=== PATIENT | male | born 1965 | race Caucasian/White ===

== ENCOUNTER 2018-10-19 00:22 | Observation (INO) | payer BC, OTHER ==
[2018-10-19] MEDS ORDERED: Diphtheria,Pertussis(Acell),Tetanus Vaccine 0.5 ML Syringe IM ONE (00:38)
[2018-10-19] MEDS ORDERED: Bacitracin/Neomycin/Polymyxin B Oint 28.4 GM Tube TOP ONE (00:39)
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
[2018-10-19] MEDS ORDERED: Ondansetron 4 MG/2 ML SDV IVPUSH ONE (00:48)
[2018-10-19] MEDS ORDERED: HYDROmorphone 1 MG/ML Syringe IVPUSH ONE (00:48)
[2018-10-19] MEDS ORDERED: Sodium Chloride 0.9% 1,000 ML IV ONE (00:48)
[2018-10-19] MEDS ORDERED: Acetaminophen/HYDROcodone 325-5 MG Tab PO PRN (01:31)
[2018-10-19] MEDS ORDERED: HYDROmorphone 1 MG/ML Syringe IVPUSH PRN (01:31)
[2018-10-19] MEDS ORDERED: Ondansetron 4 MG/2 ML SDV IVPUSH PRN (01:33)
[2018-10-19] MEDS ORDERED: diphenhydrAMINE 50 MG/ML SDV IVPUSH PRN (01:33)
[2018-10-19] MEDS ORDERED: Sodium Chloride 0.9% 10 ML SDV IV SCH (02:45)
[2018-10-19] MEDS ORDERED: Sodium Chloride 0.9% 1,000 ML IV SCH (10:15)
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
[2018-10-19] MEDS ORDERED: Bacitracin Oint 28.35 GM Tube TOP SCH (14:00)
== END 2018-10-19 13:50 | disposition home or self-care (01) ==
LOC: MW.ED 00:22 → MW.MS 00:47
PROVIDERS: ADMIT Surgery; ATTEND Surgery
DX: T20.24XA Burn of second degree of nose (septum), initial encounter (principal); T23.212A Burn of second degree of left thumb (nail), initial encounter; T26.3 Burns of other specified parts of eye and adnexa; T22.10XA Burn of first degree of shoulder and upper limb, except wrist and hand, unspecified site, initial encounter; T31.0 Burns involving less than 10% of body surface; J45.909 Unspecified asthma, uncomplicated; M19.90 Unspecified osteoarthritis, unspecified site; X16.XXXA Contact with hot heating appliances, radiators and pipes, initial encounter; Z87.891 Personal history of nicotine dependence; Z79.51 Long term (current) use of inhaled steroids; Z79.1 Long term (current) use of non-steroidal anti-inflammatories (NSAID); Z79.899 Other long term (current) drug therapy
CPT/HCPCS: 90471; 90715; 96374; 96375; 99283; 99284-25; G0378; J1170; J2405; J7040

== ENCOUNTER 2020-03-27 01:09 | Inpatient (IN) | payer OTHER ==
[2020-03-27] MEDS ORDERED: Sodium Chloride 0.9% 2,500 ML IV ONE (01:21)
[2020-03-27] MEDS ORDERED: Sodium Chloride 0.9% 10 ML Syringe FLUSH PRN ×2 (01:21→04:09)
[2020-03-27] MEDS ORDERED: Sodium Chloride 0.9% 2.5 ML Syringe FLUSH PRN ×2 (01:21→04:09)
[2020-03-27] MEDS ORDERED: Dexamethasone 10 MG/ML SDV IVPUSH ONE (01:21)
[2020-03-27] MEDS ORDERED: cefTRIAXone 2 GM in Sodium Chloride 0.9% 100 ML IV ONE (01:21)
[2020-03-27] MEDS ORDERED: Azithromycin 500 MG in Sodium Chloride 0.9% 250 ML IV SCH (01:30)
--- NOTE | 2020-03-27 01:36 | EDM.PDOC ---
ED HPI GENERAL MEDICAL PROBLEM - General Chief Complaint: Respiratory Problem Stated Complaint: SHORTNESS OF BREATH, COVID POSITIVE Time Seen by Provider: 03/27/20 01:12 - History of Present Illness INITIAL COMMENTS - FREE TEXT/NARRATIVE: HISTORY AND PHYSICAL: History of present illness: This 54-year-old male with a past medical history of BMI greater than 35, asthma, BPH on Flomax presents to emergency department with known COVID positive status. Tonight he is become severely short of breath is come to the emergency department for evaluation. He reports intermittent fevers, now has gradual worsening shortness of breath over the last 12 to 14 hours. No productive cough. No chest pain. Has had a runny nose and a sore throat. Denies any other associated signs or symptoms. No other modifying, aggravating or allevi ating factors. Review of systems: A 10-point review of systems, other than pertinent positives and negatives as stated per HPI, is otherwise negative. Past medical history: As per history of present illness and as reviewed below otherwise noncontributory. Surgical history: As per history of present illness and as reviewed below otherwise noncontributory. Social history: No reported history of drug or alcohol abuse. Family history: As per history of present illness and as reviewed below otherwise noncontributory. Physical exam: VITAL SIGNS: Reviewed. GENERAL: Appears mildly to moderately ill. Tachypnea. And complains of respiratory distress/air hunger. HEAD: No signs of head trauma. EYES: Pupils are equal. Extraocular motions intact. EARS: Hearing grossly intact. MOUTH: Oropharynx is normal. NECK: No adenopathy, no JVD. CHEST: Chest with clear breath sounds bilaterally. No wheezes, rales, or rhonchi. There is tachypnea without accessory muscle use CARDIAC: Regular rate and rhythm. Normal S1 and S2, without murmurs, gallops, or rubs. VASCULAR: Peripheral pulses normal and equal in all extremities. ABDOMEN: Soft, without detectable tenderness. No sign of distention. No rebound or guarding, and no masses palpated. MUSCULOSKELETAL: Good range of motion of all major joints. Extremities without clubbing, cyanosis or edema. NEUROLOGIC EXAM: Alert and oriented x 3. No focal sensory or motor deficits. Speech normal. Follows commands. PSYCHIATRIC: Mood normal. SKIN: No rash or lesions. This is present Initial Differential Diagnosis & Plan: Shortness of breath: Differential diagnosis includes asthma, COPD, pneumonia, congestive heart failure, anemia, thyroid disease, acidosis, pulmonary embolism, myocardial infarction, sepsis. Most likely COVID-19 pneumonia. We will obtain an ABG, chest x-ray, EKG, labs, and start initial COVID medication management. The patient will require admission secondary to his oxygen requirement. Definitive disposition and diagnosis as appropriate pending reevaluation and review of above. - Related Data Allergies Allergy/AdvReac Type Severity Reaction Status Date / Time No Known Allergies Allergy Verified 03/27/20 05:31 Home Meds: Home Meds Albuterol Sulfate [Proair Hfa] 8.5 gm IH ASDIRECTED 10/19/18 [History] Budesonide/Formoterol Fumarate [Symbicort 80-4.5 MCG] 1 puff IH BID 10/19/18 [History] Celecoxib [CeleBREX] 50 mg PO DAILY 10/19/18 [History] Tamsulosin HCl [Flomax] 0.4 mg PO DAILY 03/27/20 [History] Past Medical History HEENT History: Reports: None Cardiovascular History: Reports: None Respiratory History: Reports: Asthma Gastrointestinal History: Reports: None Genitourinary History: Reports: None Musculoskeletal History: Reports: Arthritis Neurological History: Reports: None Psychiatric History: Reports: None Endocrine/Metabolic History: Reports: None Hematologic History: Reports: None Immunologic History: Reports: None Oncologic (Cancer) History: Reports: None Dermatologic History: Reports: Eczema - Infectious Disease History Infectious Disease History: Reports: Chicken Pox, Measles - Past Surgical History Head Surgeries/Procedures: Reports: None Social & Family History - Caffeine Use Caffeine Use: Reports: Coffee, Soda ED ROS GENERAL - Review of Systems Review Of Systems: See Below (noted) ED EXAM, GENERAL - Physical Exam Exam: See Below (noted) ED RESPIRATORY PROCEDURES - Additional/Other Procedure(s) Other (Free Text) Procedure(s): Critical Care Note: The patient presented in critical status due to sepsis secondary to SARS-CoV-2 The patient required rapid exam, decision making, and frequent re-evaluations during their time in the Emergency Department. Total Critical Care time exclusive of all other billable procedure time provided by myself 45 minutes EKG INTERPRETATION EKG Interpretation Comments: 12 lead EKG interpretation Obtained: March 27, 2020 at 01 52 AM Rhythm: Sinus Rate: 81 [place]: Normal Intervals: Normal ST/T Segments: No acute ischemic changes Interpretation: Sinus Rhythm Course - Vital Signs Last Recorded V/S: Last Vital Signs Temp 96.8 F L 03/28/20 00:36 Pulse 54 L 03/28/20 00:36 Resp 16 03/28/20 00:36 BP 114/58 L 03/28/20 00:36 Pulse Ox 92 L 03/28/20 00:36 Patient has bilateral pneumonia and positive COVID-19 test consistent with bilateral COVID pneumonia, early signs of sepsis, given IV antibiotics, IV fluids calculated based on ideal body weight given that his height is 5 foot 4 i nches his ideal body weight should be 70 kg. He received 2500 mL's of IV fluids. He received 2 g of ceftriaxone intravenously. EKG is reassuring. Chest CT is pending to rule out other underlying causes of disease. The patient does have some high risk features including slightly elevated liver enzymes however not 3 times a hand of normal, leukopenia, lymphopenia, thrombocytopenia. Troponin is negative. There is no evidence of kidney dysfunction or renal failure. Oxygen saturation returned to normal ranges with 2 L by nasal cannula. Does not need ventilatory support at this time. ABG was attempted but was unsuccessful. Given his oxygen requirement and positive CODE STATUS I gave the patient informed consent for Remdesivir intravenous treatment. He gave positive consent and has signed the form. This will be started on the medical surgical floor. My diagnostic impression: 1. Bilateral COVID pneumonia 2. Acute respiratory failure with hypoxemia secondary to COVID pneumonia 3. Leukopenia with lymphopenia 4. Thrombocytopenia 5. Mild transaminitis not 3 times a high end of normal 6. Elevated d-dimer not 6 times a high end of normal. Empiric anticoagulation not indicated at this point Admit for intravenous dexamethasone therapy, anti-viral therapy, antibiotics as indicated, and support during progression of disease. - Orders/Labs/Meds Orders: Active Orders 24 hr Category Date Time Status Blood Pressure Mgt: Sepsis [RC] Q15MX2 Care 03/27/20 01:22 Active ABG [BLOOD GAS ARTERIAL] [BG] Stat Lab 03/27/20 01:20 Ordered CULTURE BLOOD [BC] Stat Lab 03/27/20 02:14 Received CULTURE BLOOD [BC] Stat Lab 03/27/20 02:17 Received Sodium Chloride 0.9% [Saline Flush] Med 03/27/20 01:21 Active 10 ml FLUSH ASDIRECTED PRN Sodium Chloride 0.9% [Saline Flush] Med 03/27/20 01:21 Active 2.5 ml FLUSH ASDIRECTED PRN Blood Culture x2 Reflex Set [OM.PC] Stat Oth 03/27/20 01:21 Ordered Saline Lock Insert [OM.PC] Stat Oth 03/27/20 01:21 Ordered Medication Orders Albuterol/Ipratropium (Combivent Respimat) 0 gm INH Q4H PRN PRN Reason: Dyspnea Last Admin: 03/27/20 20:50 Dose: 1 puff Documented by: Admin: 03/27/20 17:24 Dose: 1 puff Documented by: Admin: 03/27/20 06:10 Dose: 1 puff Documented by: DONAL Azithromycin (Zithromax) 500 mg PO Q24H ONE Stop: 03/28/20 03:01 Dexamethasone (Dexamethasone) 6 mg PO DAILY [facility] Last Admin: 03/27/20 13:39 Dose: 6 mg Documented by: STORMY Enoxaparin Sodium (Lovenox) 40 mg SUBCUT Q24H YASH Last Admin: 03/27/20 05:04 Dose: 40 mg Documented by: MOOSE Ceftriaxone Sodium/Dextrose 1 (gm/ Premix) 50 mls @ 100 mls/hr IV Q24H YASH Remdesivir 100 mg/ Sodium (Chloride) 100 mls @ 100 mls/hr IV Q24H YASH Ibuprofen (Motrin) 200 mg PO Q6H PRN PRN Reason: Headache Last Admin: 03/27/20 19:47 Dose: 200 mg Documented by: MOOSE Pantoprazole Sodium (Protonix) 40 mg PO DAILY [facility] Last Admin: 03/27/20 13:39 Dose: 40 mg Documented by: STORMY Sodium Chloride (Saline Flush) 10 ml FLUSH ASDIRECTED PRN PRN Reason: Keep Vein Open Sodium Chloride (Saline Flush) 2.5 ml FLUSH ASDIRECTED PRN PRN Reason: Keep Vein Open Last Admin: 03/27/20 19:49 Dose: 2.5 ml Documented by: MOOSE Sodium Chloride (Saline Flush) 10 ml FLUSH ASDIRECTED PRN PRN Reason: Keep Vein Open Sodium Chloride (Saline Flush) 2.5 ml FLUSH ASDIRECTED PRN PRN Reason: Keep Vein Open Last Admin: 03/27/20 19:48 Dose: 2.5 ml Documented by: MOOSE Labs: Laboratory Tests 03/27/20 03/27/20 03/27/20 Range/Units 01:30 01:30 01:30 WBC 3.75 L (4.0-11.0) K/uL RBC 4.73 (4.50-5.90) M/uL Hgb 14.9 (13.0-17.0) g/dL Hct 42.2 (38.0-50.0) % MCV 89.2 (80.0-98.0) fL MCH 31.5 (27.0-32.0) pg MCHC 35.3 (31.0-37.0) g/dL RDW Std Deviation 39.5 (28.0-62.0) fl RDW Coeff of Libra 12 (11.0-15.0) % Plt Count 143 L (150-400) K/uL MPV 11.20 (7.40-12.00) fL Neut % (Auto) 68.0 (48.0-80.0) % Lymph % (Auto) 19.7 (16.0-40.0) % [place] % (Auto) 9.6 (0.0-15.0) % Eos % (Auto) 2.7 (0.0-7.0) % Baso % (Auto) 0.0 (0.0-1.5) % Neut # (Auto) 2.6 (1.4-5.7) K/uL Lymph # (Auto) 0.7 (0.6-2.4) K/uL [place] # (Auto) 0.4 (0.0-0.8) K/uL Eos # (Auto) 0.1 (0.0-0.7) K/uL Baso # (Auto) 0.0 (0.0-0.1) K/uL INR APTT (18.6-31.3) SEC D-Dimer, Quantitative 1.24 H (0.0-0.50) mg/L FEU Lactate (0.20-2.00) mmol/L Sodium 139 (136-148) mmol/L Potassium 3.5 (3.5-5.1) mmol/L Chloride 102 (98-107) mmol/L Carbon Dioxide 28.0 (21.0-32.0) mmol/L BUN 12 (7.0-18.0) mg/dL Creatinine 1.1 (0.8-1.3) mg/dL Est Cr Clr Drug Dosing 65.03 mL/min Estimated GFR (MDRD) > 60.0 ml/min Glucose 110 H (74-106) mg/dL Calcium 8.2 L (8.5-10.1) mg/dL Magnesium 2.2 (1.8-2.4) mg/dL Total Bilirubin 0.4 (0.2-1.0) mg/dL AST 78 H (15-37) IU/L ALT 81 H (14-63) IU/L Alkaline Phosphatase 59 (46-116) U/L Troponin I < 0.050 (0.000-0.056) ng/mL C-Reactive Protein 5.20 H (0.00-0.90) mg/dL Total Protein 6.6 (6.4-8.2) g/dL Albumin 3.4 (3.4-5.0) g/dL Globulin 3.2 (2.6-4.0) g/dL Albumin/Globulin Ratio 1.1 (0.9-1.6) 03/27/20 03/27/20 Range/Units 01:30 01:30 WBC (4.0-11.0) K/uL RBC (4.50-5.90) M/uL Hgb (13.0-17.0) g/dL Hct (38.0-50.0) % MCV (80.0-98.0) fL MCH (27.0-32.0) pg MCHC (31.0-37.0) g/dL RDW Std Deviation (28.0-62.0) fl RDW Coeff of Libra (11.0-15.0) % Plt Count (150-400) K/uL MPV (7.40-12.00) fL Neut % (Auto) (48.0-80.0) % Lymph % (Auto) (16.0-40.0) % [place] % (Auto) (0.0-15.0) % Eos % (Auto) (0.0-7.0) % Baso % (Auto) (0.0-1.5) % Neut # (Auto) (1.4-5.7) K/uL Lymph # (Auto) (0.6-2.4) K/uL [place] # (Auto) (0.0-0.8) K/uL Eos # (Auto) (0.0-0.7) K/uL Baso # (Auto) (0.0-0.1) K/uL INR 1.01 APTT 25.6 (18.6-31.3) SEC D-Dimer, Quantitative (0.0-0.50) mg/L FEU Lactate 1.0 (0.20-2.00) mmol/L Sodium (136-148) mmol/L Potassium (3.5-5.1) mmol/L Chloride (98-107) mmol/L Carbon Dioxide (21.0-32.0) mmol/L BUN (7.0-18.0) mg/dL Creatinine (0.8-1.3) mg/dL Est Cr Clr Drug Dosing mL/min Estimated GFR (MDRD) ml/min Glucose (74-106) mg/dL Calcium (8.5-10.1) mg/dL Magnesium (1.8-2.4) mg/dL Total Bilirubin (0.2-1.0) mg/dL AST (15-37) IU/L ALT (14-63) IU/L Alkaline Phosphatase (46-116) U/L Troponin I (0.000-0.056) ng/mL C-Reactive Protein (0.00-0.90) mg/dL Total Protein (6.4-8.2) g/dL Albumin (3.4-5.0) g/dL Globulin (2.6-4.0) g/dL Albumin/Globulin Ratio (0.9-1.6) Meds: Medications Generic Name Dose Route Start Last Admin Trade Name Freq PRN Reason Stop Dose Admin Albuterol/Ipratropium 0 gm 03/27/20 04:07 03/27/20 20:50 Combivent Respimat INH 1 puff Q4H PRN Administration Dyspnea Azithromycin 500 mg 03/28/20 03:00 Zithromax PO 03/28/20 03:01 Q24H ONE Dexamethasone 6 mg 03/27/20 12:30 03/27/20 13:39 Dexamethasone PO 6 mg DAILY YASH Administration Enoxaparin Sodium 40 mg 03/27/20 04:00 03/27/20 05:04 Lovenox SUBCUT 40 mg Q24H YASH Administration Ceftriaxone Sodium/Dextrose 1 50 mls @ 100 mls/hr 03/28/20 03:00 gm/ Premix IV Q24H YASH Remdesivir 100 mg/ Sodium 100 mls @ 100 mls/hr 03/28/20 03:00 Chloride IV Q24H YASH Ibuprofen 200 mg 03/27/20 19:25 03/27/20 19:47 Motrin PO 200 mg Q6H PRN Administration Headache Pantoprazole Sodium 40 mg 03/27/20 11:45 03/27/20 13:39 Protonix PO 40 mg DAILY YASH Administration Sodium Chloride 10 ml 03/27/20 01:21 Saline Flush FLUSH ASDIRECTED PRN Keep Vein Open Sodium Chloride 2.5 ml 03/27/20 01:21 03/27/20 19:49 Saline Flush FLUSH 2.5 ml ASDIRECTED PRN Administration Keep Vein Open Sodium Chloride 10 ml 03/27/20 04:09 Saline Flush FLUSH ASDIRECTED PRN Keep Vein Open Sodium Chloride 2.5 ml 03/27/20 04:09 03/27/20 19:48 Saline Flush FLUSH 2.5 ml ASDIRECTED PRN Administration Keep Vein Open Discontinued Medications Generic Name Dose Route Start Last Admin Trade Name Freq PRN Reason Stop Dose Admin Dexamethasone 10 mg 03/27/20 01:21 03/27/20 02:02 Dexamethasone IVPUSH 03/27/20 01:22 10 mg ONETIME ONE Administration Sodium Chloride 2,500 mls @ 2,500 mls/hr 03/27/20 01:21 03/27/20 02:03 Normal Saline IV 03/27/20 02:20 2,500 mls/hr BOLUS ONE Administration Protocol Remdesivir 200 mg/ Sodium 250 mls @ 250 mls/hr 03/27/20 01:21 03/27/20 03:44 Chloride IV 03/27/20 01:22 250 mls/hr ONETIME ONE Administration Ceftriaxone Sodium 2 gm/ 100 mls @ 200 mls/hr 03/27/20 01:21 03/27/20 03:47 Sodium Chloride IV 03/27/20 01:50 Not Given STAT ONE Azithromycin 500 mg/ Sodium 250 mls @ 250 mls/hr 03/27/20 01:30 03/27/20 04:01 Chloride IV 250 mls/hr ONETIME YASH Administration Ceftriaxone Sodium/Dextrose 2 50 mls @ 100 mls/hr 03/27/20 01:38 03/27/20 02:04 gm/ Premix IV 03/27/20 02:07 100 mls/hr ONETIME ONE Administration Ceftriaxone Sodium/Dextrose Confirm 03/27/20 01:40 03/27/20 03:40 Rocephin In Dextrose,Iso-Osm 2 Gm/50 Ml Administered 03/27/20 01:41 Not Given Dose 50 mls @ as directed .ROUTE .STK-MED ONE Ceftriaxone Sodium/Dextrose Confirm 03/27/20 02:10 03/27/20 03:46 Rocephin In Dextrose,Iso-Osm 2 Gm/50 Ml Administered 03/27/20 02:11 Not Given Dose 50 mls @ as directed .ROUTE .STK-MED ONE Iopamidol 75 ml 03/27/20 03:28 03/27/20 03:29 Isovue-370 (76%) IVPUSH 03/27/20 03:29 75 ml ONETIME STA Administration Departure - Departure Time of Disposition: 01:18 Disposition: Admitted As Inpatient 67 Clinical Impression: COVID-19 - Discharge Information Sepsis Event Note (ED) - Evaluation Sepsis Screening Result: No Definite Risk - My Orders Last 24 Hours: My Active Orders 03/27/20 01:20 ABG [BLOOD GAS ARTERIAL] [BG] Stat 03/27/20 01:21 Sodium Chloride 0.9% [Saline Flush] 10 ml FLUSH ASDIRECTED PRN Sodium Chloride 0.9% [Saline Flush] 2.5 ml FLUSH ASDIRECTED PRN Blood Culture x2 Reflex Set [OM.PC] Stat Saline Lock Insert [OM.PC] Stat 03/27/20 01:22 Blood Pressure Mgt: Sepsis [RC] Q15MX2 03/27/20 02:14 CULTURE BLOOD [BC] Stat 03/27/20 02:17 CULTURE BLOOD [BC] Stat - Assessment/Plan Last 24 Hours: My Active Orders 03/27/20 01:20 ABG [BLOOD GAS ARTERIAL] [BG] Stat 03/27/20 01:21 Sodium Chloride 0.9% [Saline Flush] 10 ml FLUSH ASDIRECTED PRN Sodium Chloride 0.9% [Saline Flush] 2.5 ml FLUSH ASDIRECTED PRN Blood Culture x2 Reflex Set [OM.PC] Stat Saline Lock Insert [OM.PC] Stat 03/27/20 01:22 Blood Pressure Mgt: Sepsis [RC] Q15MX2 03/27/20 02:14 CULTURE BLOOD [BC] Stat 03/27/20 02:17 CULTURE BLOOD [BC] Stat
[2020-03-27] MEDS ORDERED: cefTRIAXone 2 GM in Premix Bag 1 BAG IV ONE (01:38)
--- NOTE | 2020-03-27 02:21 | CR ---
Indication: COVID, atypical chest pain Technique: Chest 1 view Comparison: None Findings/Impression: Cardiovascular and mediastinum: Heart size and vasculature are normal in caliber and appearance. Lungs and pleural space: Low lung volumes without pleural effusion or pneumothorax. Trace hazy opacities consistent with a viral pneumonia. Bones and soft tissues: No acute findings. Dictated by Donavon Beckham MD @ Mar 27 2020 2:18AM Signed by Dr. Donavon Beckham @ Mar 27 2020 2:19AM
[2020-03-27 02:27] LABS: BLOOD UREA NITROGEN,BUN 12 mg/dL (7.0-18.0); CHLORIDE,CL 102 mmol/L (98-107); GLUCOSE RANDOM 110 mg/dL (74-106); POTASSIUM,K 3.5 mmol/L (3.5-5.1); SODIUM,NA 139 mmol/L (136-148)
[2020-03-27] MEDS ORDERED: Iopamidol 755 Mg/ML 75 ML Bottle IVPUSH STA (03:25)
[2020-03-27] MEDS ORDERED: Iopamidol 755 Mg/ML 100 ML Bottle IVPUSH STA (03:28)
--- NOTE | 2020-03-27 03:48 | CT ---
INDICATION: COVID pneumonia TECHNIQUE: CT chest PE was acquired with 75 cc Isovue 370 intravenous contrast. COMPARISON: None. FINDINGS: Heart and vasculature: Contrast opacification of the pulmonary arterial tree is adequate. No sign of pulmonary embolism. Heart size is normal. Thoracic aorta and pulmonary artery are normal in caliber.Mild coronary atherosclerosis. Lungs and pleural: No pleural effusion pneumothorax. Patchy bilateral ground-glass opacities throughout both lungs, greater at the periphery. Lymph nodes/mediastinum: No mediastinal, hilar, or axillary adenopathy. Chest wall: No masses. Upper abdomen: Diffusely decreased density of the liver consistent with fatty infiltration. Bones: Unremarkable for age. IMPRESSION: 1. No evidence of pulmonary embolus. 2. Diffuse bilateral ground-glass opacities consistent with the known COVID-19 pneumonia. 3. Fatty infiltration of the liver. Please note that all CT scans at this facility use dose modulation, iterative reconstruction, and/or weight-based dosing when appropriate to reduce radiation dose to as low as reasonably achievable. Dictated by Donavon Beckham MD @ Mar 27 2020 3:44AM Signed by Dr. Donavon Beckham @ Mar 27 2020 3:48AM
[2020-03-27] MEDS: Enoxaparin 40 MG/0.4 ML Syringe SUBCUT SCH (05:04)
[2020-03-27] MEDS: Albuterol/Ipratropium 4 GM Inhalation Spray INH PRN ×3 (06:10→20:50)
--- NOTE | 2020-03-27 08:56 | PCM.HP.2 ---
H&P History of Present Illness - General Date of Service: 03/27/20 Admit Problem/Dx: Admission Diagnosis/Problem Admission Diagnosis/Problem Pneumonia - History of Present Illness Initial Comments - Free Text/Narative: 54 yo male who developed shortness of breath, cough and fevers eight days ago. He did test positive eight days ago along with his daughter who lives with him. He presented to the ED due to worsening symptoms. He was requiring supplemental oxygen 2 liters NC to keep sats above 90%. CXR and CT scan of chest suggestive of COVID pneumonia. - Related Data Allergies/Adverse Reactions: Allergies Allergy/AdvReac Type Severity Reaction Status Date / Time No Known Allergies Allergy Verified 03/27/20 05:31 Home Medications: Home Meds Albuterol Sulfate [Proair Hfa] 8.5 gm IH ASDIRECTED 10/19/18 [History] Budesonide/Formoterol Fumarate [Symbicort 80-4.5 MCG] 1 puff IH BID 10/19/18 [History] Celecoxib [CeleBREX] 50 mg PO DAILY 10/19/18 [History] Tamsulosin HCl [Flomax] 0.4 mg PO DAILY 03/27/20 [History] Past Medical History HEENT History: Reports: None Cardiovascular History: Reports: None Respiratory History: Reports: Asthma Gastrointestinal History: Reports: None Genitourinary History: Reports: BPH Musculoskeletal History: Reports: Arthritis Neurological History: Reports: None Psychiatric History: Reports: None Endocrine/Metabolic History: Reports: None Insulin Pump Model and Turkey Picker: None Hematologic History: Reports: None Immunologic History: Reports: None Oncologic (Cancer) History: Reports: None Dermatologic History: Reports: Eczema - Infectious Disease History Infectious Disease History: Reports: Chicken Pox, Measles - Past Surgical History Head Surgeries/Procedures: Reports: None Social & Family History - Family History Family Medical History: Noncontributory - Tobacco Use Smoking Status *Q: Never Smoker - Caffeine Use Caffeine Use: Reports: Coffee, Soda - Recreational Drug Use Recreational Drug Use: No H&P Review of Systems - Review of Systems: Review Of Systems: Comprehensive ROS is negative, except as noted in HPI. Exam - Exam Exam: See Below - Vital Signs Vital Signs: Last Vital Signs Temp 36.2 C 03/27/20 03:39 Pulse 86 03/27/20 03:39 Resp 18 03/27/20 03:39 BP 150/82 H 03/27/20 03:39 Pulse Ox 96 03/27/20 03:39 Weight: 99.79 kg - Exam General: Alert, Oriented HEENT: Mucosa Moist & [place] Lungs: Clear to Auscultation, Normal Respiratory Effort Cardiovascular: Regular Rate, Regular Rhythm GI/Abdominal Exam: Normal Bowel Sounds, Soft, Non-Tender Extremities: Non-Tender, No Pedal Edema Skin: Warm, Dry, Intact - Patient Data Lab Results Last 24 hrs: Laboratory Results - last 24 hr 03/27/20 03/27/20 03/27/20 Range/Units 01:30 01:30 01:30 WBC 3.75 L (4.0-11.0) K/uL RBC 4.73 (4.50-5.90) M/uL Hgb 14.9 (13.0-17.0) g/dL Hct 42.2 (38.0-50.0) % MCV 89.2 (80.0-98.0) fL MCH 31.5 (27.0-32.0) pg MCHC 35.3 (31.0-37.0) g/dL RDW Std Deviation 39.5 (28.0-62.0) fl RDW Coeff of Libra 12 (11.0-15.0) % Plt Count 143 L (150-400) K/uL MPV 11.20 (7.40-12.00) fL Neut % (Auto) 68.0 (48.0-80.0) % Lymph % (Auto) 19.7 (16.0-40.0) % [place] % (Auto) 9.6 (0.0-15.0) % Eos % (Auto) 2.7 (0.0-7.0) % Baso % (Auto) 0.0 (0.0-1.5) % Neut # (Auto) 2.6 (1.4-5.7) K/uL Lymph # (Auto) 0.7 (0.6-2.4) K/uL [place] # (Auto) 0.4 (0.0-0.8) K/uL Eos # (Auto) 0.1 (0.0-0.7) K/uL Baso # (Auto) 0.0 (0.0-0.1) K/uL INR APTT (18.6-31.3) SEC D-Dimer, Quantitative 1.24 H (0.0-0.50) mg/L FEU Lactate (0.20-2.00) mmol/L Sodium 139 (136-148) mmol/L Potassium 3.5 (3.5-5.1) mmol/L Chloride 102 (98-107) mmol/L Carbon Dioxide 28.0 (21.0-32.0) mmol/L BUN 12 (7.0-18.0) mg/dL Creatinine 1.1 (0.8-1.3) mg/dL Est Cr Clr Drug Dosing 65.03 mL/min Estimated GFR (MDRD) > 60.0 ml/min Glucose 110 H (74-106) mg/dL Calcium 8.2 L (8.5-10.1) mg/dL Magnesium 2.2 (1.8-2.4) mg/dL Total Bilirubin 0.4 (0.2-1.0) mg/dL AST 78 H (15-37) IU/L ALT 81 H (14-63) IU/L Alkaline Phosphatase 59 (46-116) U/L Troponin I < 0.050 (0.000-0.056) ng/mL C-Reactive Protein 5.20 H (0.00-0.90) mg/dL Total Protein 6.6 (6.4-8.2) g/dL Albumin 3.4 (3.4-5.0) g/dL Globulin 3.2 (2.6-4.0) g/dL Albumin/Globulin Ratio 1.1 (0.9-1.6) SARS CoV-2 RNA Rapid YIMI (NEGATIVE) 03/27/20 03/27/20 03/27/20 Range/Units 01:30 01:30 02:25 WBC (4.0-11.0) K/uL RBC (4.50-5.90) M/uL Hgb (13.0-17.0) g/dL Hct (38.0-50.0) % MCV (80.0-98.0) fL MCH (27.0-32.0) pg MCHC (31.0-37.0) g/dL RDW Std Deviation (28.0-62.0) fl RDW Coeff of Libra (11.0-15.0) % Plt Count (150-400) K/uL MPV (7.40-12.00) fL Neut % (Auto) (48.0-80.0) % Lymph % (Auto) (16.0-40.0) % [place] % (Auto) (0.0-15.0) % Eos % (Auto) (0.0-7.0) % Baso % (Auto) (0.0-1.5) % Neut # (Auto) (1.4-5.7) K/uL Lymph # (Auto) (0.6-2.4) K/uL [place] # (Auto) (0.0-0.8) K/uL Eos # (Auto) (0.0-0.7) K/uL Baso # (Auto) (0.0-0.1) K/uL INR 1.01 APTT 25.6 (18.6-31.3) SEC D-Dimer, Quantitative (0.0-0.50) mg/L FEU Lactate 1.0 (0.20-2.00) mmol/L Sodium (136-148) mmol/L Potassium (3.5-5.1) mmol/L Chloride (98-107) mmol/L Carbon Dioxide (21.0-32.0) mmol/L BUN (7.0-18.0) mg/dL Creatinine (0.8-1.3) mg/dL Est Cr Clr Drug Dosing mL/min Estimated GFR (MDRD) ml/min Glucose (74-106) mg/dL Calcium (8.5-10.1) mg/dL Magnesium (1.8-2.4) mg/dL Total Bilirubin (0.2-1.0) mg/dL AST (15-37) IU/L ALT (14-63) IU/L Alkaline Phosphatase (46-116) U/L Troponin I (0.000-0.056) ng/mL C-Reactive Protein (0.00-0.90) mg/dL Total Protein (6.4-8.2) g/dL Albumin (3.4-5.0) g/dL Globulin (2.6-4.0) g/dL Albumin/Globulin Ratio (0.9-1.6) SARS CoV-2 RNA Rapid YIMI POSITIVE H (NEGATIVE) Result Diagrams: 03/28/20 06:32 03/28/20 06:32 Sepsis Event Note - Evaluation Sepsis Screening Result: No Definite Risk - Focused Exam Vital Signs: Vital Signs Temp Pulse Resp BP Pulse Ox 03/27/20 03:39 36.2 C 86 18 150/82 H 96 03/27/20 03:09 82 18 97 03/27/20 02:30 74 18 138/78 95 03/27/20 02:08 140/86 03/27/20 01:53 146/91 H 03/27/20 01:15 36.9 C 92 20 125/81 90 L Problem List Initiated/Reviewed/Updated: Yes Orders Last 24hrs: Active Orders 24 hr Category Date Time Status Patient Status [ADT] Routine ADT 03/27/20 02:16 Active Antiembolic Devices [RC] PER UNIT ROUTINE Care 03/27/20 05:40 Active Blood Pressure Mgt: Sepsis [RC] [id number] Care 03/27/20 01:22 Active RT Post Treatment Assessment [RC] Click to Edit Care 03/27/20 04:07 Active RT Pre-Treatment Assessment [RC] Click to Edit Care 03/27/20 04:07 Active Telemetry Monitoring [Cardiac Monitoring] [RC] . Care 03/27/20 03:53 Active DIRECTED Vital Signs [RC] Q4H Care 03/27/20 04:08 Active Regular Diet [DIET] Diet 03/27/20 Breakfast Active ABG [BLOOD GAS ARTERIAL] [BG] Stat Lab 03/27/20 01:20 Ordered CORONAVIRUS COVID-19 PCR PHL Stat Lab 03/27/20 02:25 Received CULTURE BLOOD [BC] Stat Lab 03/27/20 02:14 Received CULTURE BLOOD [BC] Stat Lab 03/27/20 02:17 Received Albuterol/Ipratropium [Combivent Respimat] Med 03/27/20 04:07 Active 0 gm INH Q4H PRN Azithromycin [Zithromax] 500 mg Med 03/27/20 01:30 Active Sodium Chloride 0.9% [Normal Saline (AdvBag)] 250 ml IV ONETIME Enoxaparin [Lovenox] Med 03/27/20 04:00 Active 40 mg SUBCUT Q24H Sodium Chloride 0.9% [Saline Flush] Med 03/27/20 01:21 Active 10 ml FLUSH ASDIRECTED PRN Sodium Chloride 0.9% [Saline Flush] Med 03/27/20 04:09 Active 10 ml FLUSH ASDIRECTED PRN Sodium Chloride 0.9% [Saline Flush] Med 03/27/20 01:21 Active 2.5 ml FLUSH ASDIRECTED PRN Sodium Chloride 0.9% [Saline Flush] Med 03/27/20 04:09 Active 2.5 ml FLUSH ASDIRECTED PRN Blood Culture x2 Reflex Set [OM.PC] Stat Ot 03/27/20 01:21 Ordered SCD [Sequential Compression Device] [OM.PC] Routine Ot 03/27/20 05:40 Ordered Saline Lock Insert [OM.PC] Routine Ot 03/27/20 04:09 Ordered Saline Lock Insert [OM.PC] Stat Ot 03/27/20 01:21 Ordered Medication Orders Albuterol/Ipratropium (Combivent Respimat) 0 gm INH Q4H PRN PRN Reason: Dyspnea Last Admin: 03/27/20 06:10 Dose: 1 puff Documented by: DONAL Enoxaparin Sodium (Lovenox) 40 mg SUBCUT Q24H YASH Last Admin: 03/27/20 05:04 Dose: 40 mg Documented by: MOOSE Azithromycin 500 mg/ Sodium (Chloride) 250 mls @ 250 mls/hr IV ONETIME [facility] Last Admin: 03/27/20 04:01 Dose: 250 mls/hr Documented by: MOOSE Sodium Chloride (Saline Flush) 10 ml FLUSH ASDIRECTED PRN PRN Reason: Keep Vein Open Sodium Chloride (Saline Flush) 2.5 ml FLUSH ASDIRECTED PRN PRN Reason: Keep Vein Open Sodium Chloride (Saline Flush) 10 ml FLUSH ASDIRECTED PRN PRN Reason: Keep Vein Open Sodium Chloride (Saline Flush) 2.5 ml FLUSH ASDIRECTED PRN PRN Reason: Keep Vein Open Assessment/Plan Comment:: 54 yo male admitted for COVID pneumonia. We will treat with Remdesivir, dexamethasone and lovenox. Patient explained emergency use authorization and potential side effects of medications. Patient is also receiving Rocephin and azithromycin for possible bacterial pneumonia.
[2020-03-27] MEDS: Dexamethasone 4 MG Tab PO SCH (13:39)
[2020-03-27] MEDS: Pantoprazole 40 MG Tab.CR PO SCH (13:39)
[2020-03-27] MEDS ORDERED: Ibuprofen 200 MG Tab PO PRN (19:25)
[2020-03-28] MEDS: Albuterol/Ipratropium 4 GM Inhalation Spray INH PRN ×2 (02:42→09:15)
[2020-03-28] MEDS ORDERED: Azithromycin 250 MG Tab PO ONE (03:00)
[2020-03-28] MEDS ORDERED: REMDESIVIR (EUA) 100 MG in Sodium Chloride 0.9% 100 ML IV SCH (03:00)
[2020-03-28] MEDS ORDERED: cefTRIAXone 1 GM in Premix Bag 1 BAG IV SCH (03:00)
[2020-03-28] MEDS ORDERED: Dexamethasone 1 MG/ML Oral Drops 30 ML Bottle PO SCH (03:00)
[2020-03-28] MEDS: Enoxaparin 40 MG/0.4 ML Syringe SUBCUT SCH (04:04)
[2020-03-28 07:07] LABS: BLOOD UREA NITROGEN,BUN 14 mg/dL (7.0-18.0); CARBON DIOXIDE,CO2 25.8 mmol/L (21.0-32.0); CHLORIDE,CL 107 mmol/L (98-107); GLUCOSE RANDOM 162 mg/dL (74-106); POTASSIUM,K 3.9 mmol/L (3.5-5.1); SODIUM,NA 142 mmol/L (136-148)
[2020-03-28] MEDS: Pantoprazole 40 MG Tab.CR PO SCH (09:11)
[2020-03-28] MEDS: Dexamethasone 4 MG Tab PO SCH (09:12)
--- NOTE | 2020-03-28 11:29 | PCM.DCSUM1 ---
Discharge Summary - Discharge Data Discharge Date: 03/28/20 Discharge Disposition: Home, Self-Care 01 Condition: Stable - Referral to Home Health Primary Care Physician: Jayesh Harrington MD - Patient Summary/Data Hospital Course: 54 yo male who was admitted fo COVID pneumonia. He presented with shortness of breath, cough and fevers for eight days. He did test positive eight days ago along with his daughter who lives with him. He was requiring supplemental oxygen 2 liters NC to keep sats above 90%. CXR and CT scan of chest suggestive of COVID pneumonia. He was treated with Remdesivir, dexamethasone, Rocephin and azithromycin. He did have improvement in his symptoms and today is requesting discharge. He was instructed to isolate at home and to follow up with [facility]. - Patient Instructions Diet: Usual Diet as Tolerated Activity: As Tolerated - Discharge Plan Prescriptions/Med Rec: dexAMETHasone [Decadron] 6 mg PO DAILY #8 tablet Pantoprazole [ProTONIX] 40 mg PO DAILY #7 tab.cr Azithromycin [Zithromax] 500 mg PO Q24H #4 tablet Home Medications: Home Meds Albuterol Sulfate [Proair Hfa] 8.5 gm IH ASDIRECTED 10/19/18 [History] Budesonide/Formoterol Fumarate [Symbicort 80-4.5 MCG] 1 puff IH BID 10/19/18 [History] Celecoxib [CeleBREX] 50 mg PO DAILY 10/19/18 [History] Tamsulosin HCl [Flomax] 0.4 mg PO DAILY 03/27/20 [History] Azithromycin [Zithromax] 500 mg PO Q24H #4 tablet 03/28/20 [Rx] Pantoprazole [ProTONIX] 40 mg PO DAILY #7 tab.cr 03/28/20 [Rx] dexAMETHasone [Decadron] 6 mg PO DAILY #8 tablet 03/28/20 [Rx] Forms: ED Department Discharge Referrals: Jayesh Harrington MD [Primary Care Provider] - - Discharge Summary/Plan Comment DC Time >30 min.: No - Patient Data Vitals - Most Recent: Last Vital Signs Temp 36.2 C 03/28/20 09:00 Pulse 64 03/28/20 09:00 Resp 17 03/28/20 09:00 BP 99/62 03/28/20 09:00 Pulse Ox 93 L 03/28/20 09:00 Weight - Most Recent: 99.79 kg I&O - Last 24 hours: Intake & Output 03/27/20 03/28/20 03/28/20 22:59 06:59 14:59 Intake Total 1700 1650 Output Total 900 2300 Balance 800 -650 Lab Results - Last 24 hrs: Laboratory Results - last 24 hr 03/28/20 03/28/20 Range/Units 06:32 06:32 WBC 6.42 (4.0-11.0) K/uL RBC 4.42 L (4.50-5.90) M/uL Hgb 13.6 (13.0-17.0) g/dL Hct 40.2 (38.0-50.0) % MCV 91.0 (80.0-98.0) fL MCH 30.8 (27.0-32.0) pg MCHC 33.8 (31.0-37.0) g/dL RDW Std Deviation 42.5 (28.0-62.0) fl RDW Coeff of Libra 13 (11.0-15.0) % Plt Count 204 (150-400) K/uL MPV 11.00 (7.40-12.00) fL Nucleated RBC % 0.0 /100WBC Nucleated RBCs # 0 K/uL Sodium 142 (136-148) mmol/L Potassium 3.9 (3.5-5.1) mmol/L Chloride 107 (98-107) mmol/L Carbon Dioxide 25.8 (21.0-32.0) mmol/L BUN 14 (7.0-18.0) mg/dL Creatinine 1.0 (0.8-1.3) mg/dL Est Cr Clr Drug Dosing 71.53 mL/min Estimated GFR (MDRD) > 60.0 ml/min Glucose 162 H (74-106) mg/dL Calcium 8.2 L (8.5-10.1) mg/dL Total Bilirubin 0.2 (0.2-1.0) mg/dL AST 43 H (15-37) IU/L ALT 75 H (14-63) IU/L Alkaline Phosphatase 57 (46-116) U/L Total Protein 6.1 L (6.4-8.2) g/dL Albumin 3.0 L (3.4-5.0) g/dL Globulin 3.1 (2.6-4.0) g/dL Albumin/Globulin Ratio 1.0 (0.9-1.6) CRIS Results - Last 24 hrs: Microbiology 03/27/20 02:17 Aerobic Blood Culture - Preliminary Blood - Venous - Lab Draw NO GROWTH AFTER 1 DAY Anaerobic Blood Culture - Preliminary NO GROWTH AFTER 1 DAY 03/27/20 02:14 Aerobic Blood Culture - Preliminary Blood - Venous NO GROWTH AFTER 1 DAY Anaerobic Blood Culture - Preliminary NO GROWTH AFTER 1 DAY Med Orders - Current: Current Medications Albuterol/Ipratropium (Combivent Respimat) 0 gm INH Q4H PRN PRN Reason: Dyspnea Last Admin: 03/28/20 09:15 Dose: 1 puff Documented by: Azithromycin (Zithromax) 500 mg PO Q24H [facility] Dexamethasone (Dexamethasone) 6 mg PO DAILY [facility] Last Admin: 03/28/20 09:12 Dose: 6 mg Documented by: Enoxaparin Sodium (Lovenox) 40 mg SUBCUT Q24H [facility] Last Admin: 03/28/20 04:04 Dose: 40 mg Documented by: Ceftriaxone Sodium/Dextrose 1 (gm/ Premix) 50 mls @ 100 mls/hr IV Q24H [facility] Last Admin: 03/28/20 02:32 Dose: 100 mls/hr Documented by: Remdesivir 100 mg/ Sodium (Chloride) 100 mls @ 100 mls/hr IV Q24H [facility] Last Admin: 03/28/20 02:32 Dose: 100 mls/hr Documented by: Ibuprofen (Motrin) 200 mg PO Q6H PRN PRN Reason: Headache Last Admin: 03/27/20 19:47 Dose: 200 mg Documented by: Pantoprazole Sodium (Protonix) 40 mg PO DAILY [facility] Last Admin: 03/28/20 09:11 Dose: 40 mg Documented by: Sodium Chloride (Saline Flush) 10 ml FLUSH ASDIRECTED PRN PRN Reason: Keep Vein Open Sodium Chloride (Saline Flush) 2.5 ml FLUSH ASDIRECTED PRN PRN Reason: Keep Vein Open Last Admin: 03/27/20 19:49 Dose: 2.5 ml Documented by: Sodium Chloride (Saline Flush) 10 ml FLUSH ASDIRECTED PRN PRN Reason: Keep Vein Open Sodium Chloride (Saline Flush) 2.5 ml FLUSH ASDIRECTED PRN PRN Reason: Keep Vein Open Last Admin: 03/27/20 19:48 Dose: 2.5 ml Documented by: Discontinued Medications Azithromycin (Zithromax) 500 mg PO Q24H ONE Stop: 03/28/20 03:01 Last Admin: 03/28/20 02:32 Dose: 500 mg Documented by: Dexamethasone (Dexamethasone) 10 mg IVPUSH ONETIME ONE Stop: 03/27/20 01:22 Last Admin: 03/27/20 02:02 Dose: 10 mg Documented by: Sodium Chloride (Normal Saline) 2,500 mls @ 2,500 mls/hr IV BOLUS ONE; Protocol Stop: 03/27/20 02:20 Last Admin: 03/27/20 02:03 Dose: 2,500 mls/hr Documented by: Remdesivir 200 mg/ Sodium (Chloride) 250 mls @ 250 mls/hr IV ONETIME ONE Stop: 03/27/20 01:22 Last Admin: 03/27/20 03:44 Dose: 250 mls/hr Documented by: Ceftriaxone Sodium 2 gm/ (Sodium Chloride) 100 mls @ 200 mls/hr IV STAT ONE Stop: 03/27/20 01:50 Last Admin: 03/27/20 03:47 Dose: Not Given Documented by: Azithromycin 500 mg/ Sodium (Chloride) 250 mls @ 250 mls/hr IV ONETIME YASH Last Admin: 03/27/20 04:01 Dose: 250 mls/hr Documented by: Ceftriaxone Sodium/Dextrose 2 (gm/ Premix) 50 mls @ 100 mls/hr IV ONETIME ONE Stop: 03/27/20 02:07 Last Admin: 03/27/20 02:04 Dose: 100 mls/hr Documented by: Ceftriaxone Sodium/Dextrose (Rocephin In Dextrose,Iso-Osm 2 Gm/50 Ml) Confirm Administered Dose 50 mls @ as directed .ROUTE .STK-MED ONE Stop: 03/27/20 01:41 Last Admin: 03/27/20 03:40 Dose: Not Given Documented by: Ceftriaxone Sodium/Dextrose (Rocephin In Dextrose,Iso-Osm 2 Gm/50 Ml) Confirm Administered Dose 50 mls @ as directed .ROUTE .STK-MED ONE Stop: 03/27/20 02:11 Last Admin: 03/27/20 03:46 Dose: Not Given Documented by: Iopamidol ([id number] (76%)) 75 ml IVPUSH ONETIME STA Stop: 03/27/20 03:29 Last Admin: 03/27/20 03:29 Dose: 75 ml Documented by:
[2020-03-28] MEDS ORDERED: FLU VAC QV 2020(18YR UP)RCM/PF 180 MCG/0.5 ML SYRINGE IM ONE (12:34)
[2020-03-28] MEDS ORDERED: FLU VACC QS2020-21(6MOS UP)/PF 60 MCG/0.5 ML SYRINGE IM ONE (13:30)
[2020-03-29] MEDS ORDERED: Azithromycin 250 MG Tab PO SCH (04:00)
== END 2020-03-28 14:15 | disposition home or self-care (01) | DRG 177 ==
LOC: MW.ED 01:09 → MW.MS 02:16
PROVIDERS: ADMIT Internal Medicine; ATTEND Internal Medicine
PROC: XW033E5 Introduction of Remdesivir Anti-infective into Peripheral Vein, Percutaneous Approach, New Technology Group 5 (ICD-10-PCS; 2020-03-27)
PROC: 3E02340 Introduction of Influenza Vaccine into Muscle, Percutaneous Approach (ICD-10-PCS; principal; 2020-03-28)
PROC: XW033E5 Introduction of Remdesivir Anti-infective into Peripheral Vein, Percutaneous Approach, New Technology Group 5 (ICD-10-PCS; 2020-03-28)
DX: U07.1 COVID-19 (principal); J12.89 Other viral pneumonia; N40.0 Benign prostatic hyperplasia without lower urinary tract symptoms; M19.90 Unspecified osteoarthritis, unspecified site; Z23 Encounter for immunization
CPT/HCPCS: 36415; 71045; 71045-26; 71275; 71275-26; 80053; 83605; 83735; 84484; 85025; 85027; 85379; 85610; 85730; 86140; 87040; 90686; 93005; 94664; 99221; 99238; 99291; A9270-GY; G0008; J0456; J0696; J1100; J1650; J7030; J7050; J8540; Q9967; U0002

== ENCOUNTER 2023-10-15 09:44 | Day surgery (SDC) | payer OTHER ==
[2023-10-15] MEDS: Lactated Ringers 1,000 ML IV SCH (10:26)
[2023-10-15] MEDS ORDERED: propofoL 50 ML ONE (12:03)
== END 2023-10-15 13:08 | disposition home or self-care (01) ==
LOC: MW.SDS 09:44
PROVIDERS: ATTEND Surgery
DX: Z12.11 Encounter for screening for malignant neoplasm of colon (principal); K64.8 Other hemorrhoids; J45.909 Unspecified asthma, uncomplicated; K21.9 Gastro-esophageal reflux disease without esophagitis; E66.9 Obesity, unspecified; Z68.41 Body mass index [BMI] 40.0-44.9, adult; Z79.899 Other long term (current) drug therapy; Z87.891 Personal history of nicotine dependence; Z98.890 Other specified postprocedural states
CPT/HCPCS: 45378; J2704; J7120